=== PATIENT | male | born 1950 | race Caucasian/White ===

== ENCOUNTER 2017-01-02 11:25 | Emergency (ER) | payer OTHER ==
[~2017-01-02] VITALS: Ht 182.9 cm; Wt 85.9 kg
[2017-01-02] MEDS ORDERED: NAPROSYN500 MG PO (13:39)
[2017-01-02] MEDS ORDERED: ULTRAM50 MG PO (13:39)
[2017-01-02 14:03] VITALS: BP 105/72
== END 2017-01-02 14:04 | disposition home or self-care (01) ==
LOC: EME 11:25
PROC: 2W3FX1Z Immobilization of Left Hand using Splint (ICD-10-PCS; principal; 2017-01-02)
DX: S62.325A Displaced fracture of shaft of fourth metacarpal bone, left hand, initial encounter for closed fracture (principal); S62.645A Nondisplaced fracture of proximal phalanx of left ring finger, initial encounter for closed fracture; S62.647A Nondisplaced fracture of proximal phalanx of left little finger, initial encounter for closed fracture; V23.4XXA Motorcycle driver injured in collision with car, pick-up truck or van in traffic accident, initial encounter; Y92.410 Unspecified street and highway as the place of occurrence of the external cause; F17.200 Nicotine dependence, unspecified, uncomplicated
CPT/HCPCS: 73060; 73090; 73130; 99281; 99284